=== PATIENT | female | born 1945 | race Caucasian/White ===

== ENCOUNTER 2023-03-21 16:39 | Inpatient (IN) ==
[2023-03-21 17:26] LABS: ABS Basophils 0.1 10^3/uL (0.0-0.1); ABS Eosinophils 0.1 10^3/uL (0.0-0.5); ABS Lymphocytes 1.7 10^3/uL (1.0-4.8); ABS Monocytes 0.7 10^3/uL (0.0-0.9); ABS Neutrophils 6.6 10^3/uL (1.5-7.6); Eosinophil % 1.4 %; Hematocrit 41.5 % (35-45); Hemoglobin 13.8 g/dL (11.5-14.3); Mean Corpuscular Hemoglobin 27.8 pg (27-33); Mean Corpuscular Hgb Conc 33.2 g/dL (31-36); Mean Corpuscular Volume 83.8 fL (80-97); Platelet Count 222 10^3/uL (150-450); Red Blood Count 4.95 10^6/uL (3.63-4.92); Red Cell Distribution Width 14.2 % (12-17); White Blood Count 9.2 10^3/uL (3.8-11.8)
[2023-03-21 17:32] LABS: INR 1.1 (0.88-1.18)
[2023-03-21 17:44] LABS: Albumin/Globulin Ratio 1.2 (1-3); Creatinine, Serum 0.83 mg/dL (0.51-0.95); Globulin 3.3 g/dL (2-4); Total Bilirubin 0.3 mg/dL (0.2-1.0); Total Protein 7.3 g/dL (6.4-8.9)
[2023-03-21 19:31] LABS: High Sensitivity Troponin 1 Hr 56 pg/mL (<15)
[2023-03-21] MEDS ORDERED: Iohexol 350 (CONTRAST) 500 ML MDV IV ONE (21:28)
[2023-03-22 00:43] LABS: High Sensitivity Troponin 3 Hr 56 pg/mL (<15)
[2023-03-22 10:17] LABS: ABS Basophils 0.1 10^3/uL (0.0-0.1); ABS Eosinophils 0.1 10^3/uL (0.0-0.5); ABS Lymphocytes 1.3 10^3/uL (1.0-4.8); ABS Monocytes 0.6 10^3/uL (0.0-0.9); ABS Neutrophils 6.9 10^3/uL (1.5-7.6); Eosinophil % 0.9 %; Hematocrit 41.6 % (35-45); Hemoglobin 13.7 g/dL (11.5-14.3); Mean Corpuscular Hemoglobin 27.6 pg (27-33); Mean Corpuscular Hgb Conc 32.9 g/dL (31-36); Mean Corpuscular Volume 83.8 fL (80-97); Mean Platelet Volume 8.9 fL (7.5-11.2); Platelet Count 224 10^3/uL (150-450); Red Blood Count 4.96 10^6/uL (3.63-4.92); Red Cell Distribution Width 14.4 % (12-17); White Blood Count 8.9 10^3/uL (3.8-11.8)
[2023-03-22] MEDS: Enoxaparin 40 MG/0.4 ML SYR SUBCUT SCH (10:19)
[2023-03-22 10:32] LABS: Calcium 9.9 mg/dL (8.6-10.3); Creatinine, Serum 0.7 mg/dL (0.51-0.95); Potassium 4.6 mmol/L (3.5-5.0); eGFR CKD-EPI 89.6 (>60)
[2023-03-23] MEDS: Enoxaparin 40 MG/0.4 ML SYR SUBCUT SCH (08:14)
[2023-03-24] MEDS ORDERED: Heparin 1,000 UNIT/ML 10 ml (10,000 UNITS) CATHLAB/DIALYSIS ONE (07:56)
[2023-03-24] MEDS ORDERED: Midazolam 5 mg/5 ml VIAL 1 mg/ml 5 ml VIAL (5 mg) ONE (07:56)
[2023-03-24] MEDS ORDERED: VERAPAMIL 2.5 MG/ML 2 ML VIAL ** 5 mg/2 ml ONE (07:56)
[2023-03-24] MEDS ORDERED: fentaNYL 100 mcg/2 ml 50 MCG/ML VIAL ONE (07:56)
[2023-03-24] MEDS ORDERED: Heparin 2 UNITS/ML 1000 mls 2,000 ML IV ONE (07:57)
[2023-03-24] MEDS ORDERED: Iohexol 350 (CONTRAST) 200 ML MDV IV ONE ×2 (07:57→10:38)
[2023-03-24] MEDS ORDERED: nitroGLYCERIN DRIP 25,000 MCG/250 ML BTL ONE (07:57)
[2023-03-24] MEDS ORDERED: Lidocaine 1% MPF 5 ML VIAL ONE (07:57)
[2023-03-24] MEDS ORDERED: Iohexol 350 (CONTRAST) 100 ML PAK IV ONE ×2 (07:57→11:51)
[2023-03-24] MEDS ORDERED: fentaNYL 100 mcg/2 ml 50 MCG/ML VIAL IV SLOW PU ONE (08:56)
[2023-03-24] MEDS ORDERED: Midazolam 10 mg/10 ml VIAL 1 mg/ml 10 ml VIAL (10 mg) IV SLOW PU ONE (08:56)
[2023-03-24] MEDS ORDERED: Heparin 2 UNITS/ML 1000 mls 1,000 ML IV ONE (09:28)
[2023-03-24] MEDS ORDERED: niCARdipine 0.1MG/ML IVPREMIX 0 MG/0 ML BAG IV ONE (09:28)
[2023-03-24] MEDS ORDERED: NS 0.9% 1000 ml BAG 1,000 ML IV SCH (12:15)
[2023-03-24] MEDS: Enoxaparin 40 MG/0.4 ML SYR SUBCUT SCH (15:51)
[2023-03-24 20:09] VITALS: BP 131/50
== END 2023-03-24 16:50 | disposition home or self-care (01) | DRG 198 ==
LOC: EDHOLD 16:39 → ED 16:39 → SUATTDRO 03-22 08:40 → MEDTELE 03-22 09:41
PROVIDERS: ADMIT Internal Medicine; ATTEND Internal Medicine